=== PATIENT | female | born 1930 | race Two or more races ===

== ENCOUNTER 2018-04-19 22:24 | Inpatient (IN) | payer BC, MEDICARE, OTHER ==
[~2018-04-19] VITALS: Ht 157.5 cm; Wt 63.0 kg
--- NOTE | 2018-04-19 22:22 | Emergency Room Report ---
History of Present Illness General Source: Family Member, EMS Present Illness HPI Patient is an 87-year-old female brought in by [facility] after increased altered mental status. Patient had been reportedly had an argument with her son and may have taken some sleeping pills. Patient prior history of hypothyroidism as well as hypertension. Patient was noted to have increased altered mental status.Patient reportedly had been at a doctor's appointment earlier in the day.The patient was noted to be responsive to painful stimuli by EMS. Allergies: Coded Allergies: CODEINE (Verified Allergy, Unknown, 07/03/09) Patient History Reviewed Nursing Documentation: PMH: Agreed; PSxH: Agreed Review of Systems All Other Systems: limited - by mental status Physical Exam General Appearance: moderate distress, lethargic Head: normocephalic Eyes: bilateral eye other - pupils 2mm reactive ENT: dry mucus membranes Neck: limited range of motion Respiratory: rales Cardiovascular #1: tachycardia Gastrointestinal: normal inspection, soft Musculoskeletal: normal inspection, back normal Neurologic: other - somnolent, purposeful movement when checking gag reflex Medical Decision Making Diagnostic Impression: Primary Impression: Altered level of consciousness Additional Impressions: Incomplete right bundle branch block Medication overdose ER Course Patient presented for altered mental status. Differential diagnosis included wasn't limited to CVA, medication overdose, sepsis, hypertensive crisis, encephalopathy among others.Because of complexity of patient's case laboratory testing and imaging studies were ordered.A CT imaging of the head read by radiology showed no evidence of acute hemorrhage or CVA.EKG interpreted by me showed normal sinus rhythm with a rate of 75 with left axis deviation right bundle-branch block without acute ST changes. The patient started on IV fluids. Chest x-ray one view interpreted by me showed tortuous aorta without evident infiltrate normal cardiac size and probable healed left proximal humerus fracture. The patient was noted to have some gradual improvement in mental status. Poison control was contacted for possible overdose. They recommended laboratory testing as well as IV bicarbonate. Dr. Jama was contacted for inpatient management due to panel physician. Labs Test 04/19/18 22:40 04/20/18 01:50 White Blood Count 5.6 K/UL (4.8-10.8) Red Blood Count 4.39 M/UL (4.20-5.40) Hemoglobin 13.0 G/DL (12.0-16.0) Hematocrit 38.1 % (37.0-47.0) Mean Corpuscular Volume 87 FL (80-99) Mean Corpuscular Hemoglobin 29.7 PG (27.0-31.0) Mean Corpuscular Hemoglobin Concent 34.2 G/DL (32.0-36.0) Red Cell Distribution Width 12.3 % (11.6-14.8) Platelet Count 207 K/UL (150-450) Mean Platelet Volume 8.9 FL (6.5-10.1) Neutrophils (%) (Auto) 64.6 % (45.0-75.0) Lymphocytes (%) (Auto) 24.1 % (20.0-45.0) Monocytes (%) (Auto) 8.9 % (1.0-10.0) Eosinophils (%) (Auto) 1.0 % (0.0-3.0) Basophils (%) (Auto) 1.4 % (0.0-2.0) Sodium Level 131 MMOL/L (136-145) Potassium Level 2.6 MMOL/L (3.5-5.1) Chloride Level 95 MMOL/L (98-107) Carbon Dioxide Level 28 MMOL/L (21-32) Anion Gap 8 mmol/L (5-15) Blood Urea Nitrogen 15 mg/dL (7-18) Creatinine 0.7 MG/DL (0.55-1.30) Estimat Glomerular Filtration Rate mL/min (>60) Glucose Level 116 MG/DL (74-106) Lactic Acid Level 0.90 mmol/L (0.4-2.0) Calcium Level 9.6 MG/DL (8.5-10.1) Total Bilirubin 0.6 MG/DL (0.2-1.0) Aspartate Amino Transf (AST/SGOT) 14 U/L (15-37) Alanine Aminotransferase (ALT/SGPT) 20 U/L (12-78) Alkaline Phosphatase 63 U/L (46-116) Ammonia 18 umol/L (11-32) Troponin I 0.003 ng/mL (0.000-0.056) Total Protein 6.9 G/DL (6.4-8.2) Albumin 3.7 G/DL (3.4-5.0) Globulin 3.2 g/dL Albumin/Globulin Ratio 1.2 (1.0-2.7) Thyroid Stimulating Hormone (TSH) 4.465 uiU/mL (0.358-3.740) Salicylates Level 0.7 ug/mL (2.8-20) Acetaminophen Level < 2 MCG/ML (10-30) Serum Alcohol < 3 mg/dL Urine Color Pale yellow Urine Appearance Clear Urine pH 7 (4.5-8.0) Urine Specific [place] 1.010 (1.005-1.035) Urine Protein Negative (NEGATIVE) Urine Glucose (UA) Negative (NEGATIVE) Urine Ketones 1+ (NEGATIVE) Urine Occult Blood 1+ (NEGATIVE) Urine Nitrite Negative (NEGATIVE) Urine Bilirubin Negative (NEGATIVE) Urine Urobilinogen Normal MG/DL (0.0-1.0) Urine Leukocyte Esterase Negative (NEGATIVE) Urine RBC 0-2 /HPF (0 - 2) Urine WBC 0 /HPF (0 - 2) Urine Squamous Epithelial Cells Few /LPF (NONE/OCC) Urine Bacteria None /HPF (NONE) Urine Opiates Screen Negative (NEGATIVE) Urine Barbiturates Screen Negative (NEGATIVE) Phencyclidine (PCP) Screen Negative (NEGATIVE) Urine Amphetamines Screen Negative (NEGATIVE) Urine Benzodiazepines Screen Negative (NEGATIVE) Urine Cocaine Screen Negative (NEGATIVE) Urine Marijuana (THC) Screen Negative (NEGATIVE) EKG Diagnostic Results Rate: normal Rhythm: NSR ST Segments: no acute changes Status: unchanged Disposition: ADMITTED INPATIENT Condition: Juan Leong MD Apr 19, 2018 22:22
[2018-04-19 22:30] VITALS: BP 143/87
[2018-04-19 22:58] LABS: BASOPHILS % (AUTO) 1.4 % (0.0-2.0); HEMATOCRIT 38.1 % (37.0-47.0); LYMPHOCYTES % (AUTO) 24.1 % (20.0-45.0); MEAN CORPUSCULAR VOLUME 87 FL (80-99); MONOCYTES % (AUTO) 8.9 % (1.0-10.0); NEUTROPHILS % (AUTO) 64.6 % (45.0-75.0); PLATELET COUNT 207 K/UL (150-450); RED BLOOD COUNT 4.39 M/UL (4.20-5.40); RED CELL DISTRIBUTION WIDTH 12.3 % (11.6-14.8); WHITE BLOOD COUNT 5.6 K/UL (4.8-10.8)
[2018-04-19 23:11] LABS: AMMONIA 18 umol/L (11-32)
[2018-04-19 23:21] LABS: ALANINE AMINOTRANSFERASE 20 U/L (12-78); ALBUMIN 3.7 G/DL (3.4-5.0); ALBUMIN/GLOBULIN RATIO 1.2 (1.0-2.7); ALKALINE PHOSPHATASE 63 U/L (46-116); ANION GAP 8 mmol/L (5-15); ASPARTATE AMINO TRANSFERASE 14 U/L (15-37); BILIRUBIN,TOTAL 0.6 MG/DL (0.2-1.0); BLOOD UREA NITROGEN 15 mg/dL (7-18); CALCIUM 9.6 MG/DL (8.5-10.1); CARBON DIOXIDE 28 MMOL/L (21-32); CHLORIDE 95 MMOL/L (98-107); CREATININE 0.7 MG/DL (0.55-1.30); SODIUM 131 MMOL/L (136-145)
[2018-04-19 23:22] LABS: POTASSIUM 2.6 MMOL/L (3.5-5.1)
[2018-04-20] VITALS (10 sets, daily range): BP systolic 123–187; BP diastolic 61–111
[2018-04-20 02:05] LABS: APPEARANCE,URINE CLEAR; BILIRUBIN, URINE NEGATIVE (NEGATIVE); COLOR,URINE PALE YELLOW; GLUCOSE, URINE (UA) NEGATIVE (NEGATIVE); KETONES,URINE 1+ (NEGATIVE); LEUKOCYTE ESTERASE ,URINE NEGATIVE (NEGATIVE); NITRITE,URINE NEGATIVE (NEGATIVE); PH,URINE 7 (4.5-8.0); PROTEIN,URINE NEGATIVE (NEGATIVE); UROBILINOGEN,URINE NORMAL MG/DL (0.0-1.0)
[2018-04-20] MEDS ORDERED: 1/2 NS 1000ml IV ONE (02:07)
[2018-04-20] MEDS ORDERED: HYDROCHLOROTH12.5 M2 ORAL (02:16)
[2018-04-20] MEDS ORDERED: LEVOTHYROXINE125 MCG ORAL (02:16)
[2018-04-20] MEDS ORDERED: SIMVASTATIN5 MG ORAL (02:16)
[2018-04-20] MEDS ORDERED: PROPRANOLOL HCL60 M1 PO (02:16)
[2018-04-20] MEDS ORDERED: ZOLPIDEM TARTRAT5 MG ORAL (02:16)
[2018-04-20] MEDS ORDERED: LOSARTAN POTASS25 MG ORAL (02:16)
[2018-04-20] MEDS ORDERED: Sodium Bicarbonate 50ml Carp IV ONE (03:30)
[2018-04-20 03:54] LABS: BASOPHILS % (AUTO) 0.8 % (0.0-2.0); EOSINOPHILS % (AUTO) 0.3 % (0.0-3.0); HEMATOCRIT 41.4 % (37.0-47.0); HEMOGLOBIN 13.9 G/DL (12.0-16.0); LYMPHOCYTES % (AUTO) 10.6 % (20.0-45.0); MEAN CORPUSCULAR VOLUME 86 FL (80-99); MONOCYTES % (AUTO) 6.8 % (1.0-10.0); NEUTROPHILS % (AUTO) 81.6 % (45.0-75.0); PLATELET COUNT 201 K/UL (150-450); RED BLOOD COUNT 4.82 M/UL (4.20-5.40); RED CELL DISTRIBUTION WIDTH 11.9 % (11.6-14.8)
[2018-04-20 04:08] LABS: ANION GAP 6 mmol/L (5-15); BLOOD UREA NITROGEN 14 mg/dL (7-18); CALCIUM 8.6 MG/DL (8.5-10.1); CARBON DIOXIDE 28 MMOL/L (21-32); CHLORIDE 96 MMOL/L (98-107); CREATININE 0.7 MG/DL (0.55-1.30); SODIUM 130 MMOL/L (136-145)
[2018-04-20 04:12] LABS: ALANINE AMINOTRANSFERASE 13 U/L (12-78); ALBUMIN 3.5 G/DL (3.4-5.0); ALKALINE PHOSPHATASE 62 U/L (46-116); ASPARTATE AMINO TRANSFERASE 18 U/L (15-37); BILIRUBIN,TOTAL 0.7 MG/DL (0.2-1.0)
[2018-04-20] MEDS ORDERED: Propranolol 1mg/ml Inj IVP ONE (04:45)
[2018-04-20] MEDS ORDERED: Labetalol 5mg/ml 20ml vial IV ONE (05:30)
[2018-04-20] MEDS ORDERED: Acetaminophen 500mg (ES) tab ORAL PRN ×2 (08:30→21:03)
--- NOTE | 2018-04-20 10:37 | Diagnostic Imaging Report ---
Indications: Altered mental status Technique: Spiral acquisitions obtained through the brain. Angled axial and coronal 5 x 5 mm slices were reconstructed. Total dose length product 1428.87 mGycm. CTDI vol(s) 70.38 mGy. Dose reduction achieved using automated exposure control Comparison: None. Findings: There is some image degradation due to motion artifact. No acute intracranial hemorrhage or edema. No mass effect nor midline shift. There is age-related enlargement of the ventricles and extra-axial CSF spaces. There is periventricular deep white matter low-attenuation. Old lacunar infarct is seen in the right frontal deep white matter. There is evidence of prior bilateral cataract surgery. There is minimal mastoid disease on the left. The calvarium is intact. The sinuses are clear Impression: Somewhat limited exam due to motion artifact Chronic and age-related changes Negative for acute intracranial bleed or mass effect Minimal mastoid disease This agrees with the preliminary interpretation provided overnight by [facility] telerad[facility] service. The CT scanner at [facility] is accredited by the [employer] and the scans are performed using protocols designed to limit radiation exposure to as low as reasonably achievable to attain images of sufficient resolution adequate for diagnostic evaluation.
--- NOTE | 2018-04-20 10:38 | Diagnostic Imaging Report ---
Indication: Shortness of breath Technique: One view of the chest Comparison: none Findings: There is old healed fracture deformity left humerus. The lungs and pleural spaces are clear. The heart size is upper limits normal. The aorta is tortuous ectatic and calcified. There are surgical clips in the right upper quadrant. There is evidence of prior vertebral augmentation procedure Impression: No acute process
[2018-04-20] MEDS ORDERED: Losartan 25mg tab ORAL SCH (13:30)
--- NOTE | 2018-04-20 13:51 | History and Physical ---
History of Present Illness General Date patient seen: Apr 20, 2018 Reason for Hospitalization: Altered Level of Consciousness Present Illness HPI 87 y/o female with a PMH of HTN, hypothyroidism, and depression presents from home after overdosing on sleeping medications (zolpidem). Patient states that she has been having suicidal ideations for some time and yesterday got into an argument with her son and then decided to overdose on her sleeping medications. Patient was brought in by EMS and was acutely altered in the ER. CT head was done, which was unremarkable. Today, patient is A&O x 4 and in no acute distress. Patient continues to report suicidal ideations and states that she may do it again. Sitter is present at bedside in room. Denies cp, sob, n/v, abdominal pain. Allergies: Coded Allergies: CODEINE (Verified Allergy, Unknown, 07/03/09) Medication History Miscellaneous Medications Hydrochlorothiazide* (Hydrochlorothiazide*), MG ORAL, (Reported) Levothyroxine Sodium* (Levothyroxine Sodium*), MCG ORAL, (Reported) Losartan Potassium* (Losartan Potassium*), MG ORAL, (Reported) Propranolol Hcl (Propranolol Hcl), MG PO, (Reported) Simvastatin (Zocor), MG ORAL, (Reported) Zolpidem Tartrate* (Zolpidem Tartrate*), MG ORAL, (Reported) Patient History History Provided By: Patient, Medical Record Healthcare decision maker Resuscitation status Full Code Advanced Directive on File Review of Systems All Other Systems: negative except mentioned in HPI Physical Exam General Appearance: no apparent distress, alert HEENT: normocephalic, atraumatic Neck: non-tender, normal alignment, supple Respiratory/Chest: chest wall non-tender, lungs clear, normal breath sounds Cardiovascular/Chest: normal peripheral pulses, normal rate, regular rhythm Abdomen: normal bowel sounds, non tender, soft Extremities: normal range of motion, non-tender Skin Exam: normal pigmentation, warm/dry Neurologic: bleach liquor maker II-XII grossly normal, no motor/sensory deficits, alert, oriented x 3 Last 24 Hour Vital Signs Date Time Temp Pulse Resp B/P (MAP) Pulse Ox O2 Delivery O2 Flow Rate FiO2 04/20/18 13:39 130/67 04/20/18 08:03 81 04/20/18 08:00 Room Air 04/20/18 08:00 97.5 77 18 147/61 (89) 94 97.5 04/20/18 06:30 97.5 75 16 154/73 (100) 92 97.5 04/20/18 06:24 97.0 73 28 123/75 96 Nasal Cannula 2.0 97.0 04/20/18 06:03 97.0 73 28 123/75 96 Nasal Cannula 2.0 97.0 04/20/18 05:50 97.0 77 28 173/90 96 Nasal Cannula 2.0 97.0 04/20/18 05:28 97.0 80 28 142/108 96 Nasal Cannula 2.0 97.0 04/20/18 05:21 94 171/111 04/20/18 03:51 97.0 79 35 187/111 96 Nasal Cannula 2.0 97.0 04/20/18 02:12 73 23 136/77 96 Nasal Cannula 2.0 04/19/18 22:30 75 30 143/87 95 Nasal Cannula 2.0 04/19/18 22:25 76 23 180/103 98 Ambu-Bag 10.0 Intake and Output 04/19/18 04/20/18 19:00 07:00 Intake Total 1200 ml Output Total 600 ml Balance 600 ml Intake IV Total 1200 ml Output Urine Total 600 ml Laboratory Tests Test 04/19/18 22:40 04/20/18 01:50 04/20/18 03:45 White Blood Count 5.6 K/UL (4.8-10.8) 9.0 K/UL (4.8-10.8) # Red Blood Count 4.39 M/UL (4.20-5.40) 4.82 M/UL (4.20-5.40) Hemoglobin 13.0 G/DL (12.0-16.0) 13.9 G/DL (12.0-16.0) Hematocrit 38.1 % (37.0-47.0) 41.4 % (37.0-47.0) Mean Corpuscular Volume 87 FL (80-99) 86 FL (80-99) Mean Corpuscular Hemoglobin 29.7 PG (27.0-31.0) 28.9 PG (27.0-31.0) Mean Corpuscular Hemoglobin Concent 34.2 G/DL (32.0-36.0) 33.6 G/DL (32.0-36.0) Red Cell Distribution Width 12.3 % (11.6-14.8) 11.9 % (11.6-14.8) Platelet Count 207 K/UL (150-450) 201 K/UL (150-450) Mean Platelet Volume 8.9 FL (6.5-10.1) 8.7 FL (6.5-10.1) Neutrophils (%) (Auto) 64.6 % (45.0-75.0) 81.6 % (45.0-75.0) H Lymphocytes (%) (Auto) 24.1 % (20.0-45.0) 10.6 % (20.0-45.0) L Monocytes (%) (Auto) 8.9 % (1.0-10.0) 6.8 % (1.0-10.0) Eosinophils (%) (Auto) 1.0 % (0.0-3.0) 0.3 % (0.0-3.0) Basophils (%) (Auto) 1.4 % (0.0-2.0) 0.8 % (0.0-2.0) Sodium Level 131 MMOL/L (136-145) L 130 MMOL/L (136-145) L Potassium Level 2.6 MMOL/L (3.5-5.1) *L 4.0 MMOL/L (3.5-5.1) # Chloride Level 95 MMOL/L (98-107) L 96 MMOL/L (98-107) L Carbon Dioxide Level 28 MMOL/L (21-32) 28 MMOL/L (21-32) Anion Gap 8 mmol/L (5-15) 6 mmol/L (5-15) Blood Urea Nitrogen 15 mg/dL (7-18) 14 mg/dL (7-18) Creatinine 0.7 MG/DL (0.55-1.30) 0.7 MG/DL (0.55-1.30) Estimat Glomerular Filtration Rate mL/min (>60) mL/min (>60) Glucose Level 116 MG/DL (74-106) H 122 MG/DL (74-106) H Lactic Acid Level 0.90 mmol/L (0.4-2.0) Calcium Level 9.6 MG/DL (8.5-10.1) 8.6 MG/DL (8.5-10.1) Total Bilirubin 0.6 MG/DL (0.2-1.0) 0.7 MG/DL (0.2-1.0) Aspartate Amino Transf (AST/SGOT) 14 U/L (15-37) L 18 U/L (15-37) Alanine Aminotransferase (ALT/SGPT) 20 U/L (12-78) 13 U/L (12-78) Alkaline Phosphatase 63 U/L (46-116) 62 U/L (46-116) Ammonia 18 umol/L (11-32) Troponin I 0.003 ng/mL (0.000-0.056) Total Protein 6.9 G/DL (6.4-8.2) 7.0 G/DL (6.4-8.2) Albumin 3.7 G/DL (3.4-5.0) 3.5 G/DL (3.4-5.0) Globulin 3.2 g/dL 3.5 g/dL Albumin/Globulin Ratio 1.2 (1.0-2.7) 1.0 (1.0-2.7) Thyroid Stimulating Hormone (TSH) 4.465 uiU/mL (0.358-3.740) Salicylates Level 0.7 ug/mL (2.8-20) L 0.2 ug/mL (2.8-20) L Acetaminophen Level < 2 MCG/ML (10-30) L < 2 MCG/ML (10-30) L Serum Alcohol < 3 mg/dL Urine Color Pale yellow Urine Appearance Clear Urine pH 7 (4.5-8.0) Urine Specific [place] 1.010 (1.005-1.035) Urine Protein Negative (NEGATIVE) Urine Glucose (UA) Negative (NEGATIVE) Urine Ketones 1+ (NEGATIVE) H Urine Occult Blood 1+ (NEGATIVE) H Urine Nitrite Negative (NEGATIVE) Urine Bilirubin Negative (NEGATIVE) Urine Urobilinogen Normal MG/DL (0.0-1.0) Urine Leukocyte Esterase Negative (NEGATIVE) Urine RBC 0-2 /HPF (0 - 2) Urine WBC 0 /HPF (0 - 2) Urine Squamous Epithelial Cells Few /LPF (NONE/OCC) Urine Bacteria None /HPF (NONE) Urine Opiates Screen Negative (NEGATIVE) Urine Barbiturates Screen Negative (NEGATIVE) Phencyclidine (PCP) Screen Negative (NEGATIVE) Urine Amphetamines Screen Negative (NEGATIVE) Urine Benzodiazepines Screen Negative (NEGATIVE) Urine Cocaine Screen Negative (NEGATIVE) Urine Marijuana (THC) Screen Negative (NEGATIVE) Magnesium Level 1.5 MG/DL (1.8-2.4) L Height (Feet): 5 Height (Inches): 2.00 Weight (Pounds): 139 Medications Current Medications Medications (Trade) Dose Ordered Sig/Bryant Route PRN Reason Start Time Stop Time Status Last Admin Dose Admin Acetaminophen (Tylenol) 500 mg Q4H PRN ORAL Mild Pain (Pain Scale 1-3) 04/20/18 08:30 05/20/18 08:29 04/20/18 09:57 Hydrochlorothiazide (Hydrodiuril) 12.5 mg DAILY ORAL 04/21/18 09:00 05/21/18 08:59 Hydrochlorothiazide (Hydrodiuril) 12.5 mg ONCE ORAL 04/20/18 15:00 04/20/18 16:30 Levothyroxine Sodium (Synthroid) 125 mcg DAILY@0630 ORAL 04/21/18 06:30 05/21/18 06:29 Losartan Potassium (Cozaar) 25 mg DAILY ORAL 04/21/18 09:00 05/21/18 08:59 Losartan Potassium (Cozaar) 25 mg ONCE ORAL 04/20/18 13:30 04/20/18 15:30 04/20/18 13:39 Propranolol HCl (Inderal) 20 mg DAILY@1500 ORAL 04/20/18 15:00 05/20/18 14:59 Sodium Chloride 1,000 ml @ 75 mls/hr [id number] IV 04/20/18 08:00 05/20/18 07:59 04/20/18 09:22 Assessment/Plan Problem List: (1) Toxic metabolic encephalopathy ICD Codes: G92 - Toxic encephalopathy SNOMED: 822851843 (2) Hyponatremia ICD Codes: E87.1 - Hypo-osmolality and hyponatremia SNOMED: 77736947 (3) Hypomagnesemia ICD Codes: E83.42 - Hypomagnesemia SNOMED: 995202309 (4) Hypokalemia ICD Codes: E87.6 - Hypokalemia SNOMED: 60499731 (5) Hypertension ICD Codes: I10 - Essential (primary) hypertension SNOMED: 75431906 (6) Hypothyroidism ICD Codes: E03.9 - Hypothyroidism, unspecified SNOMED: 90088227 (7) Medication overdose ICD Codes: T50.901A - Poisoning by unspecified drugs, medicaments and biological substances, accidental (unintentional), initial encounter SNOMED: 92909318 (8) Incomplete right bundle branch block ICD Codes: I45.10 - Unspecified right bundle-branch block SNOMED: 430887448 Status: stable, progressing Assessment/Plan - Admit to observation - Psychiatry consulted - Continue 5150 hold - Replete electrolytes prn. - Monitor BMP and Mg - Continue home BP meds and synthroid - 1:1 sitter at bedside Stable for transfer from [facility] to med-surg. Patient continues to exhibit suicidal ideations with a plan and is not safe for discharge home. Patient will require inpatient psychiatric hospitalization and is medically cleared for transfer. Patient is agreeable for voluntary admission to inpatient psychiatric facility. workers compensation claims assistant/case management consults placed to assist in placement. DVT ppx: HSQ Code Status: Full Dispo: Inpatient psychiatric facility. Patient currently lives at home alone I spent 72 minutes on this patient's case, and 42 minutes were dedicated to counseling and/or care coordination. Discussed with patient/family, nursing staff, FERNY/GLENN, and psychiatrist regarding clinical status, treatment course, and disposition planning. Cherelle Bernal NP Apr 20, 2018 13:51
[2018-04-20] MEDS ORDERED: ASPIR 8181 MG ORAL (14:07)
[2018-04-20] MEDS ORDERED: Propranolol 10mg tab ORAL SCH (15:00)
[2018-04-20] MEDS ORDERED: hydroCHLOROthiazide 12.5mg TAB ORAL SCH (15:00)
--- NOTE | 2018-04-20 16:04 | Consultation ---
History of Present Illness General Date patient seen: Apr 20, 2018 Chief Complaint: Altered Level of Consciousness Present Illness HPI 87 y/o w/ HTN, depression, wet macular degeneration, chronic insomnia admitted with altered mental status and apparently took more than one ambien for possible suicidal ideation. Noted electrolyte abnormalities but currently alert and comfortable. Depressed about her overall health and condition. No chest pain or shortness of breath. No fever or chills. Still w/ suicidal ideation per her discussion with others. Allergies: Coded Allergies: CODEINE (Verified Allergy, Unknown, 07/03/09) Medication History Scheduled Aspirin* (Aspir 81*), 81 MG ORAL DAILY, (Reported) Miscellaneous Medications Hydrochlorothiazide* (Hydrochlorothiazide*), MG ORAL, (Reported) Levothyroxine Sodium* (Levothyroxine Sodium*), MCG ORAL, (Reported) Losartan Potassium* (Losartan Potassium*), MG ORAL, (Reported) Propranolol Hcl (Propranolol Hcl), MG PO, (Reported) Simvastatin (Zocor), MG ORAL, (Reported) Zolpidem Tartrate* (Zolpidem Tartrate*), MG ORAL, (Reported) Patient History History Provided By: Patient Healthcare decision maker Resuscitation status Full Code Advanced Directive on File Past Medical/Surgical History Past Medical/Surgical History: (1) Hypertension (2) Hypothyroidism Review of Systems Constitutional: Reports: no symptoms Eye: Reports: other - wet macular degeneration ENT: Reports: no symptoms Respiratory: Reports: no symptoms Cardiovascular: Reports: no symptoms Gastrointestinal: Reports: no symptoms Musculoskeletal: Reports: no symptoms Psychiatric: Reports: depressed feelings Neurological: Reports: no symptoms Physical Exam General Appearance: WD/WN, no apparent distress, alert HEENT: normocephalic, atraumatic, anicteric Neck: supple, normal inspection Respiratory/Chest: lungs clear Cardiovascular/Chest: normal rate, regular rhythm Abdomen: normal bowel sounds, non tender, soft Extremities: no edema Neurologic: mortgage protection sales II-XII grossly normal, no motor/sensory deficits, alert, oriented x 3, responsive Last 24 Hour Vital Signs Date Time Temp Pulse Resp B/P (MAP) Pulse Ox O2 Delivery O2 Flow Rate FiO2 04/20/18 13:39 130/67 04/20/18 12:00 80 04/20/18 12:00 Room Air 04/20/18 12:00 97.5 73 18 130/67 (88) 96 97.5 04/20/18 08:03 81 04/20/18 08:00 Room Air 04/20/18 08:00 Room Air 04/20/18 08:00 97.5 77 18 147/61 (89) 94 97.5 04/20/18 06:30 97.5 75 16 154/73 (100) 92 97.5 04/20/18 06:24 97.0 73 28 123/75 96 Nasal Cannula 2.0 97.0 04/20/18 06:03 97.0 73 28 123/75 96 Nasal Cannula 2.0 97.0 04/20/18 05:50 97.0 77 28 173/90 96 Nasal Cannula 2.0 97.0 04/20/18 05:28 97.0 80 28 142/108 96 Nasal Cannula 2.0 97.0 04/20/18 05:21 94 171/111 04/20/18 03:51 97.0 79 35 187/111 96 Nasal Cannula 2.0 97.0 04/20/18 02:12 73 23 136/77 96 Nasal Cannula 2.0 04/19/18 22:30 75 30 143/87 95 Nasal Cannula 2.0 04/19/18 22:25 76 23 180/103 98 Ambu-Bag 10.0 Intake and Output 04/19/18 04/20/18 19:00 07:00 Intake Total 1200 ml Output Total 600 ml Balance 600 ml Intake IV Total 1200 ml Output Urine Total 600 ml Laboratory Tests Test 04/19/18 22:40 04/20/18 01:50 04/20/18 03:45 White Blood Count 5.6 K/UL (4.8-10.8) 9.0 K/UL (4.8-10.8) # Red Blood Count 4.39 M/UL (4.20-5.40) 4.82 M/UL (4.20-5.40) Hemoglobin 13.0 G/DL (12.0-16.0) 13.9 G/DL (12.0-16.0) Hematocrit 38.1 % (37.0-47.0) 41.4 % (37.0-47.0) Mean Corpuscular Volume 87 FL (80-99) 86 FL (80-99) Mean Corpuscular Hemoglobin 29.7 PG (27.0-31.0) 28.9 PG (27.0-31.0) Mean Corpuscular Hemoglobin Concent 34.2 G/DL (32.0-36.0) 33.6 G/DL (32.0-36.0) Red Cell Distribution Width 12.3 % (11.6-14.8) 11.9 % (11.6-14.8) Platelet Count 207 K/UL (150-450) 201 K/UL (150-450) Mean Platelet Volume 8.9 FL (6.5-10.1) 8.7 FL (6.5-10.1) Neutrophils (%) (Auto) 64.6 % (45.0-75.0) 81.6 % (45.0-75.0) H Lymphocytes (%) (Auto) 24.1 % (20.0-45.0) 10.6 % (20.0-45.0) L Monocytes (%) (Auto) 8.9 % (1.0-10.0) 6.8 % (1.0-10.0) Eosinophils (%) (Auto) 1.0 % (0.0-3.0) 0.3 % (0.0-3.0) Basophils (%) (Auto) 1.4 % (0.0-2.0) 0.8 % (0.0-2.0) Sodium Level 131 MMOL/L (136-145) L 130 MMOL/L (136-145) L Potassium Level 2.6 MMOL/L (3.5-5.1) *L 4.0 MMOL/L (3.5-5.1) # Chloride Level 95 MMOL/L (98-107) L 96 MMOL/L (98-107) L Carbon Dioxide Level 28 MMOL/L (21-32) 28 MMOL/L (21-32) Anion Gap 8 mmol/L (5-15) 6 mmol/L (5-15) Blood Urea Nitrogen 15 mg/dL (7-18) 14 mg/dL (7-18) Creatinine 0.7 MG/DL (0.55-1.30) 0.7 MG/DL (0.55-1.30) Estimat Glomerular Filtration Rate mL/min (>60) mL/min (>60) Glucose Level 116 MG/DL (74-106) H 122 MG/DL (74-106) H Lactic Acid Level 0.90 mmol/L (0.4-2.0) Calcium Level 9.6 MG/DL (8.5-10.1) 8.6 MG/DL (8.5-10.1) Total Bilirubin 0.6 MG/DL (0.2-1.0) 0.7 MG/DL (0.2-1.0) Aspartate Amino Transf (AST/SGOT) 14 U/L (15-37) L 18 U/L (15-37) Alanine Aminotransferase (ALT/SGPT) 20 U/L (12-78) 13 U/L (12-78) Alkaline Phosphatase 63 U/L (46-116) 62 U/L (46-116) Ammonia 18 umol/L (11-32) Troponin I 0.003 ng/mL (0.000-0.056) Total Protein 6.9 G/DL (6.4-8.2) 7.0 G/DL (6.4-8.2) Albumin 3.7 G/DL (3.4-5.0) 3.5 G/DL (3.4-5.0) Globulin 3.2 g/dL 3.5 g/dL Albumin/Globulin Ratio 1.2 (1.0-2.7) 1.0 (1.0-2.7) Thyroid Stimulating Hormone (TSH) 4.465 uiU/mL (0.358-3.740) Salicylates Level 0.7 ug/mL (2.8-20) L 0.2 ug/mL (2.8-20) L Acetaminophen Level < 2 MCG/ML (10-30) L < 2 MCG/ML (10-30) L Serum Alcohol < 3 mg/dL Urine Color Pale yellow Urine Appearance Clear Urine pH 7 (4.5-8.0) Urine Specific [place] 1.010 (1.005-1.035) Urine Protein Negative (NEGATIVE) Urine Glucose (UA) Negative (NEGATIVE) Urine Ketones 1+ (NEGATIVE) H Urine Occult Blood 1+ (NEGATIVE) H Urine Nitrite Negative (NEGATIVE) Urine Bilirubin Negative (NEGATIVE) Urine Urobilinogen Normal MG/DL (0.0-1.0) Urine Leukocyte Esterase Negative (NEGATIVE) Urine RBC 0-2 /HPF (0 - 2) Urine WBC 0 /HPF (0 - 2) Urine Squamous Epithelial Cells Few /LPF (NONE/OCC) Urine Bacteria None /HPF (NONE) Urine Opiates Screen Negative (NEGATIVE) Urine Barbiturates Screen Negative (NEGATIVE) Phencyclidine (PCP) Screen Negative (NEGATIVE) Urine Amphetamines Screen Negative (NEGATIVE) Urine Benzodiazepines Screen Negative (NEGATIVE) Urine Cocaine Screen Negative (NEGATIVE) Urine Marijuana (THC) Screen Negative (NEGATIVE) Magnesium Level 1.5 MG/DL (1.8-2.4) L Height (Feet): 5 Height (Inches): 2.00 Weight (Pounds): 139 Medications Current Medications Medications (Trade) Dose Ordered Sig/Bryant Route PRN Reason Start Time Stop Time Status Last Admin Dose Admin Acetaminophen (Tylenol) 500 mg Q4H PRN ORAL Mild Pain (Pain Scale 1-3) 04/20/18 08:30 05/20/18 08:29 04/20/18 09:57 Aspirin (ASA) 81 mg DAILY ORAL 04/21/18 09:00 05/21/18 08:59 Atorvastatin Calcium (Lipitor) 10 mg BEDTIME ORAL 04/20/18 21:00 05/20/18 20:59 Hydrochlorothiazide (Hydrodiuril) 12.5 mg DAILY ORAL 04/21/18 09:00 05/21/18 08:59 Hydrochlorothiazide (Hydrodiuril) 12.5 mg ONCE ORAL 04/20/18 15:00 04/20/18 16:30 Levothyroxine Sodium (Synthroid) 125 mcg DAILY@0630 ORAL 04/21/18 06:30 05/21/18 06:29 Losartan Potassium (Cozaar) 25 mg DAILY ORAL 04/21/18 09:00 05/21/18 08:59 Propranolol HCl (Inderal) 20 mg DAILY@1500 ORAL 04/20/18 15:00 05/20/18 14:59 Sodium Chloride 1,000 ml @ 75 mls/hr [id number] IV 04/20/18 08:00 05/20/18 07:59 04/20/18 09:22 Assessment/Plan Problem List: (1) Altered level of consciousness ICD Codes: R40.4 - Transient alteration of awareness SNOMED: 4592277 (2) Incomplete right bundle branch block ICD Codes: I45.10 - Unspecified right bundle-branch block SNOMED: 472226050 (3) Hypokalemia ICD Codes: E87.6 - Hypokalemia SNOMED: 49558915 (4) Hypomagnesemia ICD Codes: E83.42 - Hypomagnesemia SNOMED: 500727294 (5) Hyponatremia ICD Codes: E87.1 - Hypo-osmolality and hyponatremia SNOMED: 17585887 (6) Hypothyroidism ICD Codes: E03.9 - Hypothyroidism, unspecified SNOMED: 63077763 (7) Hypertension ICD Codes: I10 - Essential (primary) hypertension SNOMED: 23030433 (8) Medication overdose ICD Codes: T50.901A - Poisoning by unspecified drugs, medicaments and biological substances, accidental (unintentional), initial encounter SNOMED: 52709206 Assessment/Plan Plan: -respiratory status stable -psych consult -5150 hold -avoid further ambien, can consider melatonin Will sign off, please call with any questions Time: 65 min JOSE SOTOMAYOR Apr 20, 2018 16:04
[2018-04-21] VITALS: BP 186/90
[2018-04-21] MEDS: HydrALAZINE 25mg tab ORAL PRN (01:09)
[2018-04-21 04:00] VITALS: BP 184/94
[2018-04-21 04:36] LABS: BASOPHILS % (AUTO) 1.2 % (0.0-2.0); EOSINOPHILS % (AUTO) 1.4 % (0.0-3.0); HEMATOCRIT 36.7 % (37.0-47.0); HEMOGLOBIN 12.6 G/DL (12.0-16.0); LYMPHOCYTES % (AUTO) 20.8 % (20.0-45.0); MEAN CORPUSCULAR VOLUME 86 FL (80-99); NEUTROPHILS % (AUTO) 67.6 % (45.0-75.0); PLATELET COUNT 197 K/UL (150-450); RED BLOOD COUNT 4.28 M/UL (4.20-5.40); RED CELL DISTRIBUTION WIDTH 11.9 % (11.6-14.8); WHITE BLOOD COUNT 6.8 K/UL (4.8-10.8)
[2018-04-21 04:48] LABS: ANION GAP 8 mmol/L (5-15); BLOOD UREA NITROGEN 12 mg/dL (7-18); CALCIUM 9.1 MG/DL (8.5-10.1); CARBON DIOXIDE 29 MMOL/L (21-32); CHLORIDE 95 MMOL/L (98-107); CREATININE 0.8 MG/DL (0.55-1.30); POTASSIUM 2.8 MMOL/L (3.5-5.1); SODIUM 132 MMOL/L (136-145)
[2018-04-21] MEDS ORDERED: HydrALAZINE 25mg tab ORAL SCH (05:30)
[2018-04-21] MEDS: Levothyroxine 125mcg tab ORAL SCH (06:22)
[2018-04-21] MEDS ORDERED: Levothyroxine 125mcg tab ORAL SCH (06:30)
[2018-04-21 08:00] VITALS: BP 154/93
[2018-04-21] MEDS: hydroCHLOROthiazide 12.5mg TAB ORAL SCH (08:49)
[2018-04-21] MEDS: Aspirin Baby 81mg ORAL SCH (08:49)
[2018-04-21] MEDS: Losartan 25mg tab ORAL SCH (08:50)
[2018-04-21] MEDS: Docusate 100mg cap ORAL SCH (08:50)
[2018-04-21] MEDS ORDERED: Docusate 100mg cap ORAL SCH (09:00)
[2018-04-21] MEDS ORDERED: Aspirin Baby 81mg ORAL SCH (09:00)
[2018-04-21] MEDS ORDERED: hydroCHLOROthiazide 12.5mg TAB ORAL SCH (09:00)
[2018-04-21] MEDS ORDERED: Losartan 25mg tab ORAL SCH (09:00)
[2018-04-21 11:50] VITALS: BP 143/88
[2018-04-21] MEDS: Propranolol 10mg tab ORAL SCH (14:22)
--- NOTE | 2018-04-21 15:58 | Consultation ---
History of Present Illness General Date patient seen: Apr 21, 2018 Chief Complaint: Altered Level of Consciousness Present Illness HPI 87-year-old female with hx of depression, panic attack and one suicide attempt prior to this she was brought in by [facility] after increased altered mental status. the pt has a sa after she came back from her entry specialists who told her sight is not improving. the pt stated that she is not suicide currently and stated that she does not want to lie in bed for another two days Allergies: Coded Allergies: CODEINE (Verified Allergy, Unknown, 07/03/09) Medication History Scheduled Aspirin* (Aspir 81*), 81 MG ORAL DAILY, (Reported) Miscellaneous Medications Hydrochlorothiazide* (Hydrochlorothiazide*), MG ORAL, (Reported) Levothyroxine Sodium* (Levothyroxine Sodium*), MCG ORAL, (Reported) Losartan Potassium* (Losartan Potassium*), MG ORAL, (Reported) Propranolol Hcl (Propranolol Hcl), MG PO, (Reported) Simvastatin (Zocor), MG ORAL, (Reported) Zolpidem Tartrate* (Zolpidem Tartrate*), MG ORAL, (Reported) Patient History Limited by: medical condition History Provided By: Patient, Medical Record, PMD Healthcare decision maker Resuscitation status Full Code Advanced Directive on File Past Medical/Surgical History Past Medical/Surgical History: (1) Altered level of consciousness (2) Incomplete right bundle branch block (3) Hypokalemia (4) Hypomagnesemia (5) Hyponatremia (6) Hypothyroidism (7) Hypertension (8) Toxic metabolic encephalopathy (9) Medication overdose Review of Systems Psychiatric: Reports: anxiety, depressed feelings, SI Physical Exam General Appearance: no apparent distress, alert Neurologic: oriented x 3, responsive, depressed affect Last 24 Hour Vital Signs Date Time Temp Pulse Resp B/P (MAP) Pulse Ox O2 Delivery O2 Flow Rate FiO2 04/21/18 14:22 79 143/88 04/21/18 12:00 Room Air 04/21/18 11:50 97.5 79 20 143/88 (106) 94 97.5 04/21/18 08:50 154/93 04/21/18 08:15 Room Air 04/21/18 08:00 97.0 75 20 154/93 (113) 96 97.0 04/21/18 06:22 186/90 04/21/18 04:56 61 186/90 04/21/18 04:00 Room Air 04/21/18 04:00 97.1 65 19 184/94 (124) 93 97.1 04/21/18 02:47 61 04/21/18 01:09 186/90 04/21/18 00:00 96.6 67 19 186/90 (122) 97 96.6 04/21/18 00:00 Room Air 04/20/18 20:00 Room Air 04/20/18 20:00 97.8 65 18 144/84 (104) 94 97.8 04/20/18 17:07 74 04/20/18 16:21 144 80/73 04/20/18 16:00 97.3 77 20 143/80 (101) 95 97.3 04/20/18 16:00 Room Air Intake and Output 04/20/18 04/21/18 19:00 07:00 Intake Total 600 ml 1150 ml Balance 600 ml 1150 ml Intake Oral 600 ml 400 ml IV Total 750 ml # Voids 3 4 # Bowel Movements 2 Laboratory Tests Test 04/21/18 04:05 White Blood Count 6.8 K/UL (4.8-10.8) Red Blood Count 4.28 M/UL (4.20-5.40) Hemoglobin 12.6 G/DL (12.0-16.0) Hematocrit 36.7 % (37.0-47.0) L Mean Corpuscular Volume 86 FL (80-99) Mean Corpuscular Hemoglobin 29.4 PG (27.0-31.0) Mean Corpuscular Hemoglobin Concent 34.3 G/DL (32.0-36.0) Red Cell Distribution Width 11.9 % (11.6-14.8) Platelet Count 197 K/UL (150-450) Mean Platelet Volume 9.1 FL (6.5-10.1) Neutrophils (%) (Auto) 67.6 % (45.0-75.0) Lymphocytes (%) (Auto) 20.8 % (20.0-45.0) Monocytes (%) (Auto) 9.0 % (1.0-10.0) Eosinophils (%) (Auto) 1.4 % (0.0-3.0) Basophils (%) (Auto) 1.2 % (0.0-2.0) Sodium Level 132 MMOL/L (136-145) L Potassium Level 2.8 MMOL/L (3.5-5.1) L Chloride Level 95 MMOL/L (98-107) L Carbon Dioxide Level 29 MMOL/L (21-32) Anion Gap 8 mmol/L (5-15) Blood Urea Nitrogen 12 mg/dL (7-18) Creatinine 0.8 MG/DL (0.55-1.30) Estimat Glomerular Filtration Rate mL/min (>60) Glucose Level 105 MG/DL (74-106) Calcium Level 9.1 MG/DL (8.5-10.1) Magnesium Level 1.7 MG/DL (1.8-2.4) L Troponin I 0.011 ng/mL (0.000-0.056) Height (Feet): 5 Height (Inches): 2.00 Weight (Pounds): 139 Medications Current Medications Medications (Trade) Dose Ordered Sig/Bryant Route PRN Reason Start Time Stop Time Status Last Admin Dose Admin Acetaminophen (Tylenol) 500 mg Q4H PRN ORAL Mild Pain (Pain Scale 1-3) 04/20/18 21:03 05/20/18 21:02 Amlodipine Besylate (Norvasc) 5 mg Q24HRS ORAL 04/21/18 04:45 05/21/18 04:32 04/21/18 04:56 Aspirin (ASA) 81 mg DAILY ORAL 04/21/18 09:00 05/21/18 08:59 04/21/18 08:49 Atorvastatin Calcium (Lipitor) 10 mg BEDTIME ORAL 04/20/18 21:00 05/20/18 20:59 04/20/18 21:04 Docusate Sodium (Colace) 100 mg DAILY ORAL 04/21/18 09:00 05/21/18 08:59 04/21/18 08:50 Hydralazine HCl (Apresoline) 25 mg Q6HR PRN ORAL For High Blood Pressure 04/21/18 00:45 05/21/18 00:44 04/21/18 01:09 Hydralazine HCl (Apresoline) 25 mg STAT ORAL 04/21/18 05:30 05/21/18 05:29 04/21/18 06:22 Hydrochlorothiazide (Hydrodiuril) 12.5 mg DAILY ORAL 04/21/18 09:00 05/21/18 08:59 04/21/18 08:49 Levothyroxine Sodium (Synthroid) 125 mcg DAILY@0630 ORAL 04/21/18 06:30 05/21/18 06:29 04/21/18 06:22 Losartan Potassium (Cozaar) 25 mg DAILY ORAL 04/21/18 09:00 05/21/18 08:59 04/21/18 08:50 Propranolol HCl (Inderal) 20 mg DAILY@1500 ORAL 04/21/18 15:00 05/20/18 14:59 04/21/18 14:22 Sodium Chloride 1,000 ml @ 75 mls/hr [id number] IV 04/20/18 22:00 05/20/18 21:59 04/21/18 11:20 Assessment/Plan Assessment/Plan MDD Panic attack dts -recommend psych hospitalization -the pt has a sitter -Lexapro 10mg qam -notified the family law mediator dr. Long who is the prescriber -Remeron 7.5mg [facility] Alice Omer MD Apr 21, 2018 15:58
[2018-04-21 16:00] VITALS: BP 158/85
--- NOTE | 2018-04-21 16:14 | General Progress Note ---
Assessment/Plan Problem List: (1) Toxic metabolic encephalopathy ICD Codes: G92 - Toxic encephalopathy SNOMED: 127064775 (2) Hyponatremia ICD Codes: E87.1 - Hypo-osmolality and hyponatremia SNOMED: 27502380 (3) Hypomagnesemia ICD Codes: E83.42 - Hypomagnesemia SNOMED: 157643125 (4) Hypokalemia ICD Codes: E87.6 - Hypokalemia SNOMED: 35169416 (5) Hypertension ICD Codes: I10 - Essential (primary) hypertension SNOMED: 83816356 (6) Hypothyroidism ICD Codes: E03.9 - Hypothyroidism, unspecified SNOMED: 66806157 (7) Medication overdose ICD Codes: T50.901A - Poisoning by unspecified drugs, medicaments and biological substances, accidental (unintentional), initial encounter SNOMED: 99178414 (8) Incomplete right bundle branch block ICD Codes: I45.10 - Unspecified right bundle-branch block SNOMED: 735983436 Status: stable, progressing Assessment/Plan - Psychiatry consulted, appreciate rec's - No need for 5150 hold at this time as patient is agreeable to go to inpatient psychiatric facility - Replete electrolytes prn. - Monitor BMP and Mg - Continue home BP meds and synthroid - 1:1 sitter at bedside, place room close to nursing station - repeat EKG to assess for prolonged QT or other abnormalities given ambien overdose - start lexapro 10mg qam for depression - start remeron 15mg qhs for insomnia . - avoid ambien PCP: Dr. Erick Echeverria Patient continues to exhibit suicidal ideations with a plan and is not safe for discharge home. Patient will require inpatient psychiatric hospitalization and is medically cleared for transfer. Patient is agreeable for voluntary admission to inpatient psychiatric facility. c iron worker/case management consults placed to assist in placement. DVT ppx: HSQ Code Status: Full Dispo: Inpatient psychiatric facility. Patient currently lives at home alone I spent 32 minutes on this patient's case, and 22 minutes were dedicated to counseling and/or care coordination. Discussed with patient/family, nursing staff, SW/CM, and psychiatrist regarding clinical status, treatment course, and disposition planning. Subjective Date patient seen: Apr 21, 2018 Allergies: Coded Allergies: CODEINE (Verified Allergy, Unknown, 07/03/09) Subjective - seen by psychiatry - patient requesting to go home stating that she would not do this again - AF, HDS. respiratory status stable Objective Last 24 Hour Vital Signs Date Time Temp Pulse Resp B/P (MAP) Pulse Ox O2 Delivery O2 Flow Rate FiO2 04/21/18 14:22 79 143/88 04/21/18 12:00 Room Air 04/21/18 11:50 97.5 79 20 143/88 (106) 94 97.5 04/21/18 08:50 154/93 04/21/18 08:15 Room Air 04/21/18 08:00 97.0 75 20 154/93 (113) 96 97.0 04/21/18 06:22 186/90 04/21/18 04:56 61 186/90 04/21/18 04:00 Room Air 04/21/18 04:00 97.1 65 19 184/94 (124) 93 97.1 04/21/18 02:47 61 04/21/18 01:09 186/90 04/21/18 00:00 96.6 67 19 186/90 (122) 97 96.6 04/21/18 00:00 Room Air 04/20/18 20:00 Room Air 04/20/18 20:00 97.8 65 18 144/84 (104) 94 97.8 04/20/18 17:07 74 04/20/18 16:21 144 80/73 Intake and Output 04/20/18 04/21/18 19:00 07:00 Intake Total 600 ml 1150 ml Balance 600 ml 1150 ml Intake Oral 600 ml 400 ml IV Total 750 ml # Voids 3 4 # Bowel Movements 2 Laboratory Tests 04/21/18 04:05: White Blood Count 6.8, Red Blood Count 4.28, Hemoglobin 12.6, Hematocrit 36.7L, Mean Corpuscular Volume 86, Mean Corpuscular Hemoglobin 29.4, Mean Corpuscular Hemoglobin Concent 34.3, Red Cell Distribution Width 11.9, Platelet Count 197, Mean Platelet Volume 9.1, Neutrophils (%) (Auto) 67.6, Lymphocytes (%) (Auto) 20.8, Monocytes (%) (Auto) 9.0, Eosinophils (%) (Auto) 1.4, Basophils (%) (Auto ) 1.2, Sodium Level 132L, Potassium Level 2.8L, Chloride Level 95L, Carbon Dioxide Level 29, Anion Gap 8, Blood Urea Nitrogen 12, Creatinine 0.8, Estimat Glomerular Filtration Rate , Glucose Level 105, Calcium Level 9.1, Magnesium Level 1.7L, Troponin I 0.011 Height (Feet): 5 Height (Inches): 2.00 Weight (Pounds): 139 General Appearance: no apparent distress, alert EENT: PERRL/EOMI, normal ENT inspection Neck: non-tender, normal alignment, supple Cardiovascular: normal peripheral pulses, normal rate, regular rhythm Respiratory/Chest: chest wall non-tender, lungs clear, normal breath sounds Abdomen: normal bowel sounds, non tender, soft Extremities: normal range of motion, non-tender Neurologic: senior lead developer II-XII grossly normal, no motor/sensory deficits, alert, oriented x 3 Skin: normal pigmentation, warm/dry Cherelle Bernal NP Apr 21, 2018 16:14
[2018-04-21] MEDS ORDERED: 1/2 NS 1000ml IV ONE (17:18)
[2018-04-21 20:00] VITALS: BP 119/73
[2018-04-22 00:58] VITALS: BP 155/84
[2018-04-22 04:00] VITALS: BP 188/93
[2018-04-22] MEDS: HydrALAZINE 25mg tab ORAL PRN (05:48)
[2018-04-22] MEDS: Levothyroxine 125mcg tab ORAL SCH (05:49)
[2018-04-22 08:00] VITALS: BP 127/69
[2018-04-22] MEDS: hydroCHLOROthiazide 12.5mg TAB ORAL SCH (08:08)
[2018-04-22] MEDS: Docusate 100mg cap ORAL SCH (08:09)
[2018-04-22] MEDS: Aspirin Baby 81mg ORAL SCH (08:09)
[2018-04-22] MEDS: Losartan 25mg tab ORAL SCH (08:10)
[2018-04-22] MEDS ORDERED: 1/2 NS 1000ml IV ONE (09:12)
[2018-04-22 12:00] VITALS: BP 147/77
[2018-04-22] MEDS ORDERED: HydrALAZINE 25mg tab ORAL PRN (12:00)
--- NOTE | 2018-04-22 12:38 | General Progress Note ---
Assessment/Plan Problem List: (1) Toxic metabolic encephalopathy ICD Codes: G92 - Toxic encephalopathy SNOMED: 077766146 (2) Hyponatremia ICD Codes: E87.1 - Hypo-osmolality and hyponatremia SNOMED: 33814720 (3) Hypomagnesemia ICD Codes: E83.42 - Hypomagnesemia SNOMED: 460967026 (4) Hypokalemia ICD Codes: E87.6 - Hypokalemia SNOMED: 07358014 (5) Hypertension ICD Codes: I10 - Essential (primary) hypertension SNOMED: 05862405 (6) Hypothyroidism ICD Codes: E03.9 - Hypothyroidism, unspecified SNOMED: 17611106 (7) Medication overdose ICD Codes: T50.901A - Poisoning by unspecified drugs, medicaments and biological substances, accidental (unintentional), initial encounter SNOMED: 96931417 (8) Incomplete right bundle branch block ICD Codes: I45.10 - Unspecified right bundle-branch block SNOMED: 753648122 Status: stable, progressing Assessment/Plan - Psychiatry consulted, appreciate rec's - No need for 5150 hold at this time as patient is agreeable to go to inpatient psychiatric facility - Replete electrolytes prn. - Monitor BMP and Mg - Continue home BP meds and synthroid - Hydralazine 25mg PO q6hr prn SBP > 160 - 1:1 sitter at bedside, place room close to nursing station - repeat EKG to assess for prolonged QT or other abnormalities given ambien overdose - no acute ST or T wave changes. RBBB seen, similar to previous EKG. No prolonged qtc interval - start lexapro 10mg qam for depression - start remeron 15mg qhs for insomnia . - avoid ambien PCP: Dr. Erick Echeverria Patient continues to exhibit suicidal ideations with a plan and is not safe for discharge home. Patient will require inpatient psychiatric hospitalization and is medically cleared for transfer. Patient is agreeable for voluntary admission to inpatient psychiatric facility. athletic turf worker/case management consults placed to assist in placement. DVT ppx: HSQ Code Status: Full Dispo: Inpatient psychiatric facility. Patient currently lives at home alone I spent 32 minutes on this patient's case, and 22 minutes were dedicated to counseling and/or care coordination. Discussed with patient/family, nursing staff, FERNY/GLENN, and psychiatrist regarding clinical status, treatment course, and disposition planning. Subjective Allergies: Coded Allergies: CODEINE (Verified Allergy, Unknown, 07/03/09) Subjective BP elevated today in the 170s denies cp, sob, n/v, abdominal pain pending psych placement AM labs pending Objective Last 24 Hour Vital Signs Date Time Temp Pulse Resp B/P (MAP) Pulse Ox O2 Delivery O2 Flow Rate FiO2 04/22/18 12:00 97.5 64 19 147/77 (100) 100 97.5 04/22/18 09:00 Room Air 04/22/18 08:10 178/91 04/22/18 08:00 97.3 69 21 127/69 (88) 97 97.3 04/22/18 05:48 178/91 04/22/18 04:05 65 188/93 04/22/18 04:00 97.0 66 18 188/93 (124) 99 97.0 04/22/18 00:58 97.7 69 18 155/84 (107) 96 97.7 04/21/18 21:28 Room Air 04/21/18 20:00 96.8 60 18 119/73 (88) 94 96.8 04/21/18 16:00 97.5 67 18 158/85 (109) 96 97.5 04/21/18 14:22 79 143/88 Intake and Output 04/21/18 04/22/18 19:00 07:00 Intake Total 1005 ml 600 ml Output Total 850 ml Balance 155 ml 600 ml Intake Oral 180 ml IV Total 825 ml 600 ml Output Urine Total 850 ml # Bowel Movements 1 Laboratory Tests 04/22/18 12:20: White Blood Count [Pending], Red Blood Count [Pending], Hemoglobin [Pending], Hematocrit [Pending], Mean Corpuscular Volume [Pending], Mean Corpuscular Hemoglobin [Pending], Mean Corpuscular Hemoglobin Concent [Pending], Red Cell Distribution Width [Pending], Platelet Count [Pending], Mean Platelet Volume [ Pending], Neutrophils (%) (Auto) [Pending], Lymphocytes (%) (Auto) [Pending], Monocytes (%) (Auto) [Pending], Eosinophils (%) (Auto) [Pending], Basophils (%) (Auto) [Pending], Sodium Level [Pending], Potassium Level [Pending], Chloride Level [Pending], Carbon Dioxide Level [Pending], Blood Urea Nitrogen [Pending], Creatinine [Pending], Estimat Glomerular Filtration Rate [Pending], Glucose Level [Pending], Calcium Level [Pending], Magnesium Level [Pending] Height (Feet): 5 Height (Inches): 2.00 Weight (Pounds): 139 General Appearance: no apparent distress, alert EENT: PERRL/EOMI, normal ENT inspection Neck: non-tender, normal alignment, supple Cardiovascular: normal peripheral pulses, normal rate, regular rhythm Respiratory/Chest: chest wall non-tender, lungs clear, normal breath sounds Abdomen: normal bowel sounds, non tender, soft Neurologic: bulb grader II-XII grossly normal, no motor/sensory deficits, alert, oriented x 3 Skin: normal pigmentation, warm/dry Cherelle Bernal NP Apr 22, 2018 12:38
[2018-04-22 12:42] LABS: EOSINOPHILS % (AUTO) 1.6 % (0.0-3.0); HEMATOCRIT 40.8 % (37.0-47.0); HEMOGLOBIN 14.2 G/DL (12.0-16.0); LYMPHOCYTES % (AUTO) 16.3 % (20.0-45.0); MEAN CORPUSCULAR VOLUME 86 FL (80-99); MONOCYTES % (AUTO) 8.5 % (1.0-10.0); NEUTROPHILS % (AUTO) 72.6 % (45.0-75.0); PLATELET COUNT 224 K/UL (150-450); RED BLOOD COUNT 4.76 M/UL (4.20-5.40); RED CELL DISTRIBUTION WIDTH 11.8 % (11.6-14.8); WHITE BLOOD COUNT 7.3 K/UL (4.8-10.8)
[2018-04-22 12:46] LABS: ANION GAP 9 mmol/L (5-15); BLOOD UREA NITROGEN 13 mg/dL (7-18); CALCIUM 9.2 MG/DL (8.5-10.1); CARBON DIOXIDE 25 MMOL/L (21-32); CHLORIDE 95 MMOL/L (98-107); CREATININE 0.7 MG/DL (0.55-1.30); POTASSIUM 3.5 MMOL/L (3.5-5.1); SODIUM 129 MMOL/L (136-145)
[2018-04-22] MEDS: Propranolol 10mg tab ORAL SCH (15:37)
[2018-04-22 16:00] VITALS: BP 154/93
[2018-04-22 20:00] VITALS: BP 136/75
[2018-04-23] VITALS: BP 141/83
[2018-04-23 04:00] VITALS: BP 147/79
[2018-04-23] MEDS: Levothyroxine 125mcg tab ORAL SCH (05:55)
[2018-04-23 08:00] VITALS: BP 136/69
[2018-04-23] MEDS: hydroCHLOROthiazide 12.5mg TAB ORAL SCH (08:56)
[2018-04-23] MEDS: Aspirin Baby 81mg ORAL SCH (08:56)
[2018-04-23] MEDS: Losartan 25mg tab ORAL SCH (08:56)
[2018-04-23] MEDS: Docusate 100mg cap ORAL SCH (08:56)
[2018-04-23 12:00] VITALS: BP 173/96
--- NOTE | 2018-04-23 12:48 | General Progress Note ---
Assessment/Plan Status: stable Assessment/Plan MDD Panic attack the pt is not at imminent dts/sto she has future oriented thought process -Lexapro 10mg qam -Remeron 7.5mg qhs -the pt was provided with psych referral in [place] Subjective Date patient seen: Apr 23, 2018 Neurologic/Psychiatric: Reports: anxiety Allergies: Coded Allergies: CODEINE (Verified Allergy, Unknown, 07/03/09) Subjective the pt is not suicidal in fact she is concern about her high blood pressure. she is requesting to see Dr. Steward to readjust her meds before she leaves. the pt was taling Losartan in past Objective Last 24 Hour Vital Signs Date Time Temp Pulse Resp B/P (MAP) Pulse Ox O2 Delivery O2 Flow Rate FiO2 04/23/18 12:00 97.5 71 16 173/96 (121) 97 97.5 04/23/18 09:00 Room Air 04/23/18 08:56 136/69 04/23/18 08:00 96.8 77 16 136/69 (91) 95 96.8 04/23/18 05:55 69 147/79 04/23/18 04:00 97.3 69 16 147/79 (101) 97 97.3 04/23/18 00:00 97.0 63 14 141/83 (102) 100 97.0 04/22/18 21:00 Room Air 04/22/18 20:00 97.2 58 16 136/75 (95) 98 97.2 04/22/18 16:00 97.4 63 20 154/93 (113) 97 97.4 04/22/18 15:37 64 147/77 Intake and Output 04/22/18 04/23/18 19:00 07:00 Intake Total 490 ml 1300 ml Balance 490 ml 1300 ml Intake Oral 240 ml 400 ml IV Total 250 ml 900 ml # Voids 2 2 # Bowel Movements 2 Height (Feet): 5 Height (Inches): 2.00 Weight (Pounds): 139 General Appearance: no apparent distress, alert Neurologic: oriented x 3, responsive, normal mood/affect Alice Omer MD Apr 23, 2018 12:48
--- NOTE | 2018-04-23 13:08 | Discharge Summary ---
Discharge Summary Hospital Course Date of Admission Apr 21, 2018 at 12:04 Date of Discharge 04/23/2018 Admitting Diagnosis POSSIBLE OVERDOSE Reason for Hospitalization: Somnolence TIA Monson is a 87 year old female who was admitted on Apr 21, 2018 at 12: 04 for Overdose Consultations Psychiatry Pulmonary/Critical Care Hospital Course 87 yo woman who was admitted for somnolence after possible ambien overdose Patient states she took more than one- was not feeling well and unclear whether she took this to sleep or if it was a suicide attempt No signs of toxicity n admission Psychiatry consulted- meds and counseling started inpatient No active suicidal ideation or plan No inpatient need for hospitalization or a 5150 hols and patient agreed to f/u with psychiatry as outpatient Discharge Medications Changed Medications: Hydrochlorothiazide* (Hydrochlorothiazide*) 12.5 Mg Capsule 12.5 MG ORAL DAILY for 30 Days, CAP (Changed from: MG) Levothyroxine Sodium* (Levothyroxine Sodium*) 125 Mcg Tablet 125 MCG ORAL DAILY for 30 Days, TAB (Changed from: MCG) Take in the morning on an empty stomach, at least 30 minutes before food. Losartan Potassium* (Losartan Potassium*) 25 Mg Tablet 25 MG ORAL DAILY for 30 Days, TAB (Changed from: MG) Propranolol Hcl (Propranolol Hcl) 60 Mg Tablet 20 MG PO DAILY for 30 Days, TAB (Changed from: MG) Simvastatin (Zocor) 5 Mg Tablet 5 MG ORAL DAILY for 30 Days, TAB (Changed from: MG) Continued Medications: Aspirin* (Aspir 81*) 81 Mg Tablet.dr 81 MG ORAL DAILY, TAB Escitalopram Oxalate* (Lexapro*) 10 Mg Tablet 10 MG ORAL DAILY, TAB Mirtazapine* (Mirtazapine*) 7.5 Mg Tablet 7.5 MG ORAL BEDTIME, TAB Discontinued Medications: Zolpidem Tartrate* (Zolpidem Tartrate*) 5 Mg Tablet MG ORAL, TAB 0 Refills Discharge Condition Upon Discharge: stable Discharge Disposition Patient was discharged to home I spent 35 minuted conducting and performing discharge activities on this patient Discharge Diagnoses: (1) Hypertension (2) Toxic metabolic encephalopathy Shlomo Steward M.D. Apr 23, 2018 13:08
--- NOTE | 2018-04-23 13:12 | Discharge Instructions ---
Discharge Instructions Discharge Instructions Follow up with: Dr. Jacki Costello MD/Return to Hospital if: You develop chest pain,. dyspnea or dizziness Diet: 2 GM sodium (low sodium) Resume Normal Activity?: Yes Activity: resume normal activities For Congestive Heart Failure Reminder Report to your physician any weight gain of 5 pounds or more in one week. Shlomo Steward M.D. Apr 23, 2018 13:11
[2018-04-23] MEDS ORDERED: LOSARTAN POTASS25 MG ORAL (13:24)
[2018-04-23] MEDS ORDERED: HYDROCHLOROTH12.5 M2 ORAL (13:24)
[2018-04-23] MEDS ORDERED: LEVOTHYROXINE125 MCG ORAL (13:24)
[2018-04-23] MEDS ORDERED: SIMVASTATIN5 MG ORAL (13:24)
[2018-04-23] MEDS ORDERED: PROPRANOLOL HCL60 M1 PO (13:24)
[2018-04-23] MEDS ORDERED: REMERON15 M1 ORAL (13:32)
[2018-04-23] MEDS ORDERED: LEXAPRO10 MG ORAL (13:33)
[2018-04-23] MEDS ORDERED: MIRTAZAPINE7.5 MG ORAL (13:35)
[2018-04-23 14:03] VITALS: BP 173/96
[2018-04-23] MEDS ORDERED: 1/2 NS 1000ml IV ONE (16:33)
== END 2018-04-23 16:34 | disposition home or self-care (01) | DRG 917 ==
LOC: EDBD 22:24 → EDBEDREQ 04-20 01:32 → EMR 04-20 01:56 → 2W 04-20 02:06 → OBSVTOIN 04-20 02:06 → INTOOBSV 04-20 02:06 → EDBEDREQ 04-20 02:52 → 2W 04-20 07:27 → 4W 04-20 20:21 → OBSVTOIN 04-21 12:04 → 4W 04-21 16:39
DX: T42.6X1A Poisoning by other antiepileptic and sedative-hypnotic drugs, accidental (unintentional), initial encounter (principal); G92 Toxic encephalopathy; E87.1 Hypo-osmolality and hyponatremia; I10 Essential (primary) hypertension; E03.9 Hypothyroidism, unspecified; F32.9 Major depressive disorder, single episode, unspecified; E83.42 Hypomagnesemia; E87.6 Hypokalemia; I45.10 Unspecified right bundle-branch block; Z60.2 Problems related to living alone; F51.04 Psychophysiologic insomnia; F41.0 Panic disorder [episodic paroxysmal anxiety]; Y92.009 Unspecified place in unspecified non-institutional (private) residence as the place of occurrence of the external cause
CPT/HCPCS: 36415; 70450; 71045; 80048; 80053; 80307; 80329; 81003; 82140; 83605; 83735; 84443; 84484; 85025; 93005; 93971; 96360; J8499